=== PATIENT | male | born 1960 | race Caucasian/White ===

== ENCOUNTER 2018-09-22 16:40 | Emergency (ER) | payer BC ==
[2018-09-22 17:11] LABS: Absolute Monocytes 0.4 K/uL (0.1-1.3); Absolute Neutrophil 3.8 K/uL (1.8-8.0); Basophils % 0.4 % (0-1.3); Eosinophils % 2.8 % (0-4.4); Hematocrit 46.2 % (39.6-49.0); Lymphocytes % 31.8 % (15.3-44.8); MCH 30.5 pg (27.0-35.0); MCV 88.9 fL (80-100); MPV 9.7 fL (7.6-11.3); Monocytes % 5.9 % (3.3-12.3)
[2018-09-22] MEDS ORDERED: NA CHLORIDE 0.9% 1,000 ML ONE (17:19)
[2018-09-22 17:48] LABS: ALT/SGPT 63 U/L (12-78); AST/SGOT 29 U/L (15-37); Alkaline Phosphatase 48 U/L (45-117); BUN Blood Urea Nitrogen 23 mg/dL (7-18); Bicarbonate 26 mmol/L (21-32); Bilirubin Direct 0.2 mg/dL (0-0.2); Bilirubin Total 0.7 mg/dL (0.2-1.0); Glucose Level 90 mg/dL (74-106); Lipase 152 U/L (73-393); Magnesium 2.2 mg/dL (1.8-2.4); Potassium 4.4 mmol/L (3.5-5.1); Protein, Total 7.7 g/dL (6.4-8.2); Sodium Level 138 mmol/L (136-145); Troponin (Emerg Dept Use Only) < 0.02 ng/mL (0.0-0.045)
--- NOTE | 2018-09-22 18:31 | RAD REPORT ---
EXAM DESCRIPTION: CT - Abdomen Pelvis W Contrast - 09/22/2018 6:13 pm CLINICAL HISTORY: Abdominal pain, left lower quadrant pain COMPARISON: None. TECHNIQUE: Biphasic, helical CT imaging of the abdomen and pelvis was performed following 100 ml non -ionic IV contrast. Oral contrast was given. All CT scans are performed using dose optimization technique as appropriate and may include automated exposure control or mA/KV adjustment according to patient size. FINDINGS: No suspicious findings in the lung bases. The liver, spleen, and pancreas show no focal findings. Liver attenuation is mildly fatty infiltrated . Gallbladder is contracted. No biliary tree dilatation. Symmetric renal function is seen with no hydronephrosis or suspicious renal mass. No pyelonephritis o r acute renal parenchymal process. Urinary bladder shows no suspicious findings. Prostate gland and s eminal vesicles are normal range. No gastric dilatation or wall thickening. No dilated small bowel loops for small bowel wall thickenin g. No appendicitis findings. From cecum through descending colon no acute findings seen. Mild diverti culosis is present. Moderate sigmoid diverticulitis is present. There is mild stranding in the mid si gmoid colon. Rectum and distal sigmoid colon show no acute findings. No free air, free fluid or inflammatory stranding. No hernia, mass or bulky lymphadenopathy. No ad renal abnormality. No suspicious bony findings. IMPRESSION: Mild sigmoid diverticulitis. No abscess, free air or surgically emergent finding. Mild fatty infiltration of the liver.
[2018-09-22] MEDS ORDERED: CIPROFLOXACIN HCL 500 MG TAB ONE (19:00)
[2018-09-22] MEDS ORDERED: METRONIDAZOLE 500mg IVPB 500 MG/100 ML BAG IV ONE (19:00)
[2018-09-22 19:02] LABS: Urine Bacteria <20 /HPF (NONE SEEN); Urine Culture Reflex Order NOT NEEDED; Urine RBC <5 /HPF (NONE SEEN)
--- NOTE | 2018-09-22 19:08 | ER ---
Nurse's Notes [facility] Name: Jesse Nair Age: 58 yrs Sex: Male : 1960 Arrival Date: 09/22/2018 Time: 16:42 Bed 16 Private MD: Diagnosis: Diverticulitis of intestine, part unspecified, without perforation or abscess without bleeding Presentation: 09/22 16:40 Presenting complaint: Patient states: sudden onset LLQ pain, radiating to suprapubic iw area, described as cramping pain, also had clear liquid diarrhea X1. Transition of care: patient was not received from another setting of care. Onset of symptoms was September 22, 2018. Risk Assessment: Do you want to hurt yourself or someone else? Patient reports no desire to harm self or others. Initial Sepsis Screen: Does the patient meet any 2 criteria? No. Patient's initial sepsis screen is negative. Does the patient have a suspected source of infection? No. Patient's initial sepsis screen is negative. Care prior to arrival: Medication(s) given: Toradol 30 mg IM Glucose check: 92. 16:40 Acuity: FREDDY 3 iw 16:58 Method Of Arrival: EMS: [facility] iw Historical: - Allergies: 17:02 NKA; iw - Home Meds: 17:02 Metformin Oral [Active]; Allopurinol Oral [Active]; Lisinopril Oral [Active]; iw - PMHx: 17:02 Diverticulitis; Hypertension; iw - Immunization history:: Adult Immunizations not up to date. - Ebola Screening: : Patient negative for fever greater than or equal to 101.5 degrees Fahrenheit, and additional compatible Ebola Virus Disease symptoms Patient denies exposure to infectious person Patient denies travel to an Ebola-affected area in the 21 days before illness onset No symptoms or risks identified at this time. - Social history:: Smoking status: unknown. Screenin:02 Abuse screen: Denies threats or abuse. Denies injuries from another. Nutritional iw screening: No deficits noted. Tuberculosis screening: No symptoms or risk factors identified. Fall Risk IV access (20 points). Assessment: 17:00 General: Appears in no apparent distress. Behavior is calm, cooperative. Pain: iw Complains of pain in left lower quadrant Pain currently is 4 out of 10 on a pain scale. at worst was 8 out of 10 on a pain scale. Neuro: Level of Consciousness is awake, alert, obeys commands, Oriented to person, place, time, situation, Moves all extremities. Full function. Cardiovascular: Capillary refill < 3 seconds in bilateral fingers Patient's skin is warm and dry. Respiratory: Respiratory effort is even, unlabored, Respiratory pattern is regular, symmetrical. GI: Abdomen is non-distended, Bowel sounds present X 4 quads. Abdomen is tender to palpation in suprapubic area and left lower quadrant Reports lower abdominal pain, diarrhea. : Denies burning with urination. Derm: Skin is intact, is healthy with good turgor. Musculoskeletal: Range of motion: intact in all extremities. 18:00 Reassessment: Patient appears in no apparent distress at this time. Patient and/or iw family updated on plan of care and expected duration. Pain level reassessed. Patient is alert, oriented x 3, equal unlabored respirations, skin warm/dry/pink. Patient denies pain at this time. 19:15 Reassessment: Patient appears in no apparent distress at this time. Patient and/or cc3 family updated on plan of care and expected duration. Pain level reassessed. Patient is alert, oriented x 3, equal unlabored respirations, skin warm/dry/pink. Received this male patient from morning shift RN Mable as a case of abdominal pain. With IV cannula gauge 20 at the left ACV. 19:40 Reassessment: LEONCIO Bright discharged the patient home with prescription given. IV cannula cc3 removed and patient left ER vitally stable and ambulatory with his family. Vital Signs: 16:40 BP 126 / 73; Pulse 80; Resp 16; Temp 98.2; Pulse Ox 93% on R/A; Weight 111.13 kg; iw Height 5 ft. 11 in. (180.34 cm); Pain 4/10; 19:15 BP 128 / 82; Pulse 89; Resp 19 S; Temp 98.9(O); Pulse Ox 99% on R/A; cc3 16:40 Body Mass Index 34.17 (111.13 kg, 180.34 cm) ED Course: 16:42 Patient arrived in ED. iw 16:46 Carlos Bright PA is PHCP. em 16:50 Parvez Rosenberg MD is Attending Physician. cp 16:50 Initial lab(s) drawn, by me, sent to lab. Inserted saline lock: 20 gauge in left iw antecubital area, using aseptic technique. Blood collected. 16:57 Mable Keith, RN is Primary Nurse. iw 17:00 Triage completed. iw 17:03 Radiology exam delayed due to lab results not completed at this time. (BUN/Creatinine). cw1 17:36 EKG done, by ED staff, reviewed by Carlos FANG. mh5 17:36 Patient has correct armband on for positive identification. Bed in low position. Call mh5 light in reach. Side rails up X 1. Adult w/ patient. Warm blanket given. gambling monitor on. Pulse ox on. NIBP on. 18:12 CT completed. Patient tolerated procedure well. Patient moved back from CT. bq 18:30 CT Abd/Pelvis - W/Contrast: no oral contrast In Process Unspecified. EDMS 19:07 Rodolfo Posey MD is Referral Physician. cp 19:15 Arm band placed on right wrist. cc3 19:40 No provider procedures requiring assistance completed. IV discontinued, intact, cc3 bleeding controlled, No redness/swelling at site. Pressure dressing applied. Administered Medications: 17:25 Drug: NS 0.9% 500 ml Route: IV; Rate: bolus; Site: left antecubital; iw 18:00 Follow up: IV Status: Completed infusion iw 18:29 Drug: NS 0.9% 500 ml Route: IV; Rate: bolus; Site: left antecubital; iw 19:10 Follow up: IV Status: Completed infusion iw 19:08 Drug: metroNIDAZOLE 500 mg Volume: 100 ml; Route: IVPB; Infused Over: 30 mins; Site: iw left antecubital; 19:40 Follow up: Response: No adverse reaction; IV Status: Completed infusion; IV Intake: cc3 100ml 19:08 Drug: Cipro 500 mg Route: PO; iw 19:10 Follow up: Response: No adverse reaction iw 19:10 Not Given (Physician Discretion): NS 0.9% 1000 ml IV at 100 ml/hr continuous iw Intake: 19:40 IV: 100ml; Total: 100ml. cc3 Outcome: 19:07 Discharge ordered by . cp 19:40 Discharged to home ambulatory, with family. cc3 19:40 Condition: stable 19:40 Discharge instructions given to patient, family, Instructed on discharge instructions, follow up and referral plans. medication usage, Demonstrated understanding of instructions, follow-up care, medications, Prescriptions given X 4. 19:48 Patient left the ED. cc3 Signatures: Dispatcher [employer] Fatuma Carbajal Edgar, COIL WINDER COIL WINDER Mable Samuel, LISA RN Leah Sanchez cw1 Carlos Bright PA PA cp Martinez, Maria [facility] Judith Kasper cc3
--- NOTE | 2018-09-22 19:08 | EDPHYS ---
Physician Documentation [facility] Name: Jesse Nair Age: 58 yrs Sex: Male : 1960 Arrival Date: 09/22/2018 Time: 16:42 Bed 16 Private MD: ED Physician Parvez Rosenberg HPI: 09/22 16:55 This 58 yrs old Male presents to ER via EMS with complaints of Abdominal cp Cramping. 16:55 The patient presents with abdominal pain in the left lower quadrant. cp 16:55 Onset: The symptoms/episode began/occurred suddenly, today. The symptoms do not cp radiate. Associated signs and symptoms: Pertinent positives: diarrhea, Pertinent negatives: blood in stools, constipation, dysuria, fever, hematuria, shortness of breath, testicular pain, vomiting, chest pain. The symptoms are described as constant. Severity of pain: in the emergency department the pain has improved mildly. Historical: - Allergies: 17:02 NKA; iw - Home Meds: 17:02 Metformin Oral [Active]; Allopurinol Oral [Active]; Lisinopril Oral [Active]; iw - PMHx: 17:02 Diverticulitis; Hypertension; iw - Immunization history:: Adult Immunizations not up to date. - Ebola Screening: : Patient negative for fever greater than or equal to 101.5 degrees Fahrenheit, and additional compatible Ebola Virus Disease symptoms Patient denies exposure to infectious person Patient denies travel to an Ebola-affected area in the 21 days before illness onset No symptoms or risks identified at this time. - Social history:: Smoking status: unknown. ROS: 17:00 Constitutional: Negative for body aches, chills, fever, poor PO intake. cp 17:00 Eyes: Negative for injury, pain, redness, and discharge. cp 17:00 ENT: Negative for drainage from ear(s), ear pain, sore throat, difficulty swallowing, difficulty handling secretions. 17:00 Cardiovascular: Negative for chest pain, edema, palpitations. 17:00 Respiratory: Negative for cough, shortness of breath, wheezing. 17:00 Abdomen/GI: Positive for abdominal pain, nausea, diarrhea, of the left lower quadrant, Negative for constipation, anorexia, black/tarry stool, rectal bleeding, active vomiting. 17:00 Back: Negative for decreased range of motion, radiated pain. 17:00 : Negative for urinary symptoms, testicular pain 17:00 Skin: Negative for cellulitis, rash. 17:00 Neuro: Negative for altered mental status, headache, weakness. 17:00 All other systems are negative. Exam: 17:05 Constitutional: The patient appears in no acute distress, alert, awake, cp non-diaphoretic, non-toxic, well developed, well nourished, uncomfortable. 17:05 Head/Face: Normocephalic, atraumatic. cp 17:05 Eyes: Periorbital structures: appear normal, Conjunctiva: normal, no exudate, no injection, Sclera: no appreciated abnormality, Lids and lashes: appear normal, bilaterally. 17:05 ENT: External ear(s): are unremarkable, Nose: is normal, Mouth: Lips: moist, Oral mucosa: pink and intact, moist, Posterior pharynx: is normal, airway is patent, no erythema, no exudate. 17:05 Neck: ROM/movement: is normal, is supple, without pain, no range of motions limitations, no nuchal rigidity. 17:05 Chest/axilla: Inspection: normal, Palpation: is normal, no crepitus, no tenderness. 17:05 Cardiovascular: Rate: normal, Rhythm: regular, Heart sounds: murmur, not appreciated, Edema: is not appreciated. 17:05 Respiratory: the patient does not display signs of respiratory distress, Respirations: normal, no use of accessory muscles, no retractions, no splinting, labored breathing, is not present, Breath sounds: are clear throughout, no decreased breath sounds, no stridor, no wheezing. 17:05 Abdomen/GI: Inspection: obese Bowel sounds: active, all quadrants, Palpation: soft, in all quadrants, moderate abdominal tenderness, in the left lower quadrant, rebound tenderness, is not appreciated, voluntary guarding, is elicited in the left lower quadrant. 17:05 Back: pain, is absent, ROM is normal. 17:05 Skin: cellulitis, is not appreciated, no rash present. 17:05 Neuro: Orientation: to person, place \T\ time. Mentation: lucid, able to follow commands, Cerebellar function: is grossly normal, Motor: moves all fours, strength is normal, Sensation: is normal. 17:40 ECG was reviewed by the Attending Physician. cp Vital Signs: 16:40 BP 126 / 73; Pulse 80; Resp 16; Temp 98.2; Pulse Ox 93% on R/A; Weight 111.13 kg; iw Height 5 ft. 11 in. (180.34 cm); Pain 4/10; 19:15 BP 128 / 82; Pulse 89; Resp 19 S; Temp 98.9(O); Pulse Ox 99% on R/A; cc3 16:40 Body Mass Index 34.17 (111.13 kg, 180.34 cm) iw MDM: 16:50 Patient medically screened. cp 17:00 Differential diagnosis: bowel obstruction, diverticulitis, gastritis, non-specific abd cp pain, pancreatitis, Pyelonephritis, Testicular Torsion, Ureterolithiasis, urinary tract infection. 19:06 Data reviewed: vital signs, nurses notes, lab test result(s), radiologic studies, CT cp scan. 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 Response to treatment: the patient's symptoms have markedly improved after treatment, VSS. Pain improved. Will discharge to home for continued monitoring. 09/22 16:46 Order name: Basic Metabolic Panel; Complete Time: 17:51 09/22 17:51 Interpretation: Normal except: BUN 23; CRE 1.40; GFR 52. 09/22 16:46 Order name: CBC with Diff; Complete Time: 17:51 09/22 16:46 Order name: Creatinine for Radiology; Complete Time: 17:58 09/22 17:58 Interpretation: Reviewed. 09/22 16:46 Order name: Hepatic Function; Complete Time: 17:51 09/22 16:46 Order name: Lipase; Complete Time: 17:51 09/22 16:46 Order name: Magnesium; Complete Time: 17:51 09/22 16:46 Order name: Troponin (emerg Dept Use Only); Complete Time: 17:51 09/22 16:56 Order name: Urine Microscopic Only; Complete Time: 19:06 09/22 16:58 Order name: CT Abd/Pelvis - W/Contrast: no oral contrast; Complete Time: 18:38 cp 09/22 18:27 Order name: Urine Dipstick--Ancillary (enter results) bd 09/22 16:46 Order name: IV Saline Lock; Complete Time: 17:03 em 09/22 16:46 Order name: Labs collected and sent; Complete Time: 17:03 em 09/22 16:46 Order name: EKG - Nurse/Tech; Complete Time: 17:36 em 09/22 16:56 Order name: Urine Dipstick-Ancillary (obtain specimen); Complete Time: 18:29 cp 09/22 18:43 Order name: PO challenge; Complete Time: 19:19 cp EC:40 Rate is 78 beats/min. Rhythm is regular. LA interval is normal. QRS interval is normal. cp QT interval is normal. Interpreted by me. Reviewed by me. Administered Medications: 17:25 Drug: NS 0.9% 500 ml Route: IV; Rate: bolus; Site: left antecubital; iw 18:00 Follow up: IV Status: Completed infusion iw 18:29 Drug: NS 0.9% 500 ml Route: IV; Rate: bolus; Site: left antecubital; iw 19:10 Follow up: IV Status: Completed infusion iw 19:08 Drug: metroNIDAZOLE 500 mg Volume: 100 ml; Route: IVPB; Infused Over: 30 mins; Site: iw left antecubital; 19:40 Follow up: Response: No adverse reaction; IV Status: Completed infusion; IV Intake: cc3 100ml 19:08 Drug: Cipro 500 mg Route: PO; iw 19:10 Follow up: Response: No adverse reaction iw 19:10 Not Given (Physician Discretion): NS 0.9% 1000 ml IV at 100 ml/hr continuous iw Disposition: 09/22/18 19:07 Discharged to Home. Impression: Diverticulitis of intestine, part unspecified, without perforation or abscess without bleeding. - Condition is Stable. - Discharge Instructions: Clear Liquid Diet, Adult, Diverticulitis. - Prescriptions for Bentyl 20 mg Oral Tablet - take 2 tablet by ORAL route every 6 hours As needed; 40 tablet. Zofran 4 mg Oral Tablet - take 1 tablet by ORAL route every 12 hours As needed; 20 tablet. Cipro 500 mg Oral Tablet - take 1 tablet by ORAL route every 12 hours for 7 days; 14 tablet. Metronidazole 500 mg Oral Tablet - take 1 tablet by ORAL route every 8 hours; 30 tablet. - Medication Reconciliation Form, Thank You Letter, Antibiotic Education, Prescription Opioid Use form. - Follow up: Rodolfo Posey MD; When: 2 - 3 days; Reason: Recheck today's complaints. - Problem is new. - Symptoms have improved. Signatures: Dispatcher [employer] EDUT Harpreet Araya, INFORMATION ASSURANCE INFORMATION ASSURANCE em Mable Keith RN RN iw Carlos Bright PA PA cp Judith Kasper cc3 Corrections: (The following items were deleted from the chart) 19:48 19:07 09/22/2018 19:07 Discharged to Home. Impression: Diverticulitis of intestine, cc3 part unspecified, without perforation or abscess without bleeding. Condition is Stable. Forms are Medication Reconciliation Form, Thank You Letter, Antibiotic Education, Prescription Opioid Use. Follow up: Rodolfo Posey; When: 2 - 3 days; Reason: Recheck today's complaints. Problem is new. Symptoms have improved. cp
[2018-09-22 21:26] LABS: Urine Blood NEGATIVE (NEG); Urine Glucose NEGATIVE (NEG); Urine Protein NEGATIVE (NEG); Urine Specific Gravity 1.025 (1.005-1.030)
--- NOTE | 2018-09-23 07:20 | EKG ---
Test Date: 2018-09-22 Test Time: 17:34:17 Sulfur Burner: SAYDA MEASUREMENT RESULTS: Intervals: Rate: 78 LA: 106 QRSD: 94 QT: 382 QTc: 435 [place]: P: 24 LA: 106 QRS: 64 T: 57 INTERPRETIVE STATEMENTS: Sinus rhythm with short LA Otherwise normal ECG No previous ECG available for comparison Electronically Signed On 09-23-18 07:19:17 PASTA MAKER by Basilio Sanchez
== END 2018-09-22 19:48 | disposition home or self-care (01) ==
LOC: ER 16:40
DX: K57.92 Diverticulitis of intestine, part unspecified, without perforation or abscess without bleeding (principal); I10 Essential (primary) hypertension
CPT/HCPCS: 36415; 74177; 80048; 80076; 81003; 81015; 83690; 83735; 84484; 85025; 93005; 96361; 96365; 99285; J7030; Q9967

== ENCOUNTER 2023-10-15 06:05 | Day surgery (SDC) | payer BC ==
[2023-10-15] MEDS: NA CHLORIDE 0.9% 1,000 ML ONE ×2 (06:40→07:55)
[2023-10-15 07:05] LABS: Potassium 4.1 mEq/L (3.5-5.1)
[2023-10-15] MEDS ORDERED: propofoL 200 MG/20 ML VIAL IV ONE ×4 (07:49→08:29)
[2023-10-15] MEDS ORDERED: LIDOCAINE 1% MPF 5 ML VIAL ONE (08:27)
[2023-10-15] MEDS ORDERED: ONDANSETRON 4 MG/2 ML VIAL ONE (08:42)
[2023-10-15 09:37] VITALS: BP 115/63; TEMP 97.4; O2SAT 95
--- NOTE | 2023-10-16 13:32 | EKG ---
Test Date: 2023-10-15 Test Time: 07:45:59 Allocation Analyst: ALEX MEASUREMENT RESULTS: Intervals: Rate: 74 MA: 158 QRSD: 96 QT: 390 QTc: 432 [place]: P: 39 MA: 158 QRS: 72 T: 72 INTERPRETIVE STATEMENTS: Normal sinus rhythm with sinus arrhythmia Normal ECG Compared to ECG 08/29/2021 10:56:06 Atrial premature complex(es) no longer present T-wave abnormality no longer present Electronically Signed On 10-16-23 13:27:23 ALLIANCE DIRECTOR by Андрей Palacio
== END 2023-10-15 09:38 | disposition home or self-care (01) ==
LOC: PRE 06:05 → OR 09:38
PROVIDERS: ATTEND Surgery
PROC: 0DBN8ZX Excision of Sigmoid Colon, Via Natural or Artificial Opening Endoscopic, Diagnostic (ICD-10-PCS; 2023-10-15)
PROC: 0DBH8ZX Excision of Cecum, Via Natural or Artificial Opening Endoscopic, Diagnostic (ICD-10-PCS; principal; 2023-10-15 08:00)
DX: Z12.11 Encounter for screening for malignant neoplasm of colon (principal); D12.0 Benign neoplasm of cecum; K63.5 Polyp of colon; K57.30 Diverticulosis of large intestine without perforation or abscess without bleeding; K64.8 Other hemorrhoids; E78.00 Pure hypercholesterolemia, unspecified; R73.03 Prediabetes; E66.9 Obesity, unspecified; Z79.84 Long term (current) use of oral hypoglycemic drugs; Z79.899 Other long term (current) drug therapy
CPT/HCPCS: 93005; 80048; 36415; 82947; 88305; 45380; J2704 ×2; J2001; J2405; J7030